=== PATIENT | female | born 1970 | race Caucasian/White ===

== ENCOUNTER 2017-01-30 17:55 | Emergency (ER) | payer OTHER ==
[2017-01-30 19:20] VITALS: BP 131/89
== END 2017-01-30 21:29 | disposition home or self-care (01) ==
LOC: ED 17:55
DX: S16.1XXA Strain of muscle, fascia and tendon at neck level, initial encounter (principal); S73.101A Unspecified sprain of right hip, initial encounter; Z90.49 Acquired absence of other specified parts of digestive tract; S60.212A Contusion of left wrist, initial encounter; V49.69XA Unspecified car occupant injured in collision with other motor vehicles in traffic accident, initial encounter; Y93.89 Activity, other specified; Y92.413 State road as the place of occurrence of the external cause; Y99.8 Other external cause status
CPT/HCPCS: J1885